=== PATIENT | female | born 1985 | race Caucasian/White ===

== ENCOUNTER 2023-03-28 11:08 | Emergency (ER) | payer MEDICAID ==
[2023-03-28] MEDS ORDERED: Diazepam 5 MG Tab PO ONE (12:31)
[2023-03-28] MEDS ORDERED: Ibuprofen 400 MG Tab PO ONE (12:31)
[2023-03-28] MEDS ORDERED: Lidocaine 4% 1 each Patch TOP SCH (12:45)
[2023-03-28 14:45] VITALS: BP 150/96; PULSE 75
== END 2023-03-28 14:44 | disposition home or self-care (01) ==
LOC: MW.ED 11:08
DX: M25.811 Other specified joint disorders, right shoulder (principal); Z91.09 Other allergy status, other than to drugs and biological substances; Z88.8 Allergy status to other drugs, medicaments and biological substances; Z88.1 Allergy status to other antibiotic agents
CPT/HCPCS: 73030; 99283; A9270